=== PATIENT | male | born 1995 | race Two or more races ===

== ENCOUNTER 2022-01-14 03:01 | Emergency (ER) | payer SELFPAY ==
[~2022-01-14] VITALS: Ht 182.9 cm; Wt 113.6 kg
[2022-01-14] MEDS ORDERED: KETOROLAC 30 MG/ML VIAL. IVP ONE (03:45)
[2022-01-14] MEDS ORDERED: KETOROLAC 15 MG/ML VIAL. ONE (04:01)
--- NOTE | 2022-01-14 04:06 | RAD ---
XR KNEE 3 VIEWS_RT 01/14/2022 3:40 AM INDICATION: Pain, injury COMPARISON: None available. TECHNIQUE: 3 views of the right knee are provided. FINDINGS/ IMPRESSION: No significant knee joint effusion. There is no acute fracture or dislocation. Joint spaces are maint ained. Bone mineralization is within normal limits. Regional soft tissues are within normal limits. T here is no soft tissue gas or osseous erosion. No radiopaque foreign body. Electronically signed by: Hannah Castañeda MD (01/14/2022 4:04 AM) JUAN MIGUEL
--- NOTE | 2022-01-14 04:36 | PHYS DOC ---
Adult General Chief Complaint Chief Complaint: KNEE INJURY HPI HPI The patient is a 26-year-old male who is otherwise healthy. He presents for evaluation of lateral right knee discomfort with onset last evening when he stepped wrong off a curb and hurt his knee somehow (he is not quite sure how; he did not fall but landed on his foot awkwardly). No other injury during the episode. Took some Tylenol without complete relief of symptoms. Called the ambulance to bring him to the hospital for evaluation because his knee was bothering him this morning. Review of Systems Review of Systems A 12 point review of systems was completed and was negative except where noted in HPI above. Current Medications Current Medications Current Medications Medications (Trade) Dose Ordered Sig/Rolly Start Time Stop Time Status Last Admin Dose Admin Ketorolac Tromethamine (Toradol 15mg Vial) 15 mg STK-MED ONCE 01/14/22 04:01 01/14/22 04:01 DC Ketorolac Tromethamine (Toradol 30mg Vial) 30 mg 1X ONCE 01/14/22 03:45 01/14/22 03:46 UNV 01/14/22 04:05 30 MG Physical Exam Physical Exam 26-year-old male appearing nontoxic and in no acute distress. Head is normocephalic and atraumatic. Neck is supple and nontender. Oropharynx is moist. Lungs are clear to auscultation at all stations. There is a normal S1 and S2 without rubs or gallops and capillary refill is appropriate, less than 2 seconds globally. Abdomen is soft, nontender and nondistended. Skin is warm and dry without cyanosis, clubbing or edema. Psychiatrically, the patient demonstrates appropriate mood and affect and is alert. Evaluation of the right lower extremity is remarkable for mild tenderness to palpation over the anterior lateral right knee without erythema, warmth or swelling to the right knee. Mild discomfort with ranging and mild limitation of ranging of the right knee with flexion and extension but no joint irritability seen. No discomfort with ranging of any other joint of the right lower extremity. Right lower extremity is neurovascular intact distally with strength out of 5, sensation intact light touch in all nerve distributions, DP and PT pulses 2+, capillary refill less than 2 seconds, foot warm and well-perfused. EKG EKG [] Radiology/Procedures Radiology/Procedures XR KNEE 3 VIEWS_RT 01/14/2022 3:40 AM INDICATION: Pain, injury COMPARISON: None available. TECHNIQUE: 3 views of the right knee are provided. FINDINGS/ IMPRESSION: No significant knee joint effusion. There is no acute fracture or dislocation. Joint spaces are maintained. Bone mineralization is within normal limits. Regional soft tissues are within normal limits. There is no soft tissue gas or osseous erosion. No radiopaque foreign body. Electronically signed by: Kee Gill MD (01/14/2022 4:04 AM) [facility] DICTATED and SIGNED BY: KEE GILL MD DATE: 01/14/22 [id number] 0 Course & Med Decision Making Course & Med Decision Making Plain films without evidence of acute process. Given degree of discomfort, will place knee immobilizer and provide a set of crutches and will place the patient on a course of anti-inflammatories. Will refer to orthopedics for close follow-up in the office. Patient understands that if he feels worse instead of better or develops other new symptoms of concern that he should return to the emergency department immediately for reevaluation. All questions are answered. Dragon Disclaimer Dragon Disclaimer This electronic medical record was generated, in whole or in part, using a voice recognition dictation system. Departure Departure Impression: Primary Impression: Acute internal derangement of right knee Disposition: HOME / SELF CARE / HOMELESS Condition: IMPROVED Referrals: IRENE HALL MD Patient Instructions: Knee Pain Additional Instructions: Follow-up very closely with the orthopedic doctor in the office (Dr. Irene Hall) for a reevaluation of your symptoms and to discussion of next best steps in care. Take a 600 mg ibuprofen pill every 6 hours as needed for discomfort, with food to prevent stomach upset. Rest, ice and elevate. You may wear the knee immobilizer for comfort and use the crutches to stay off your injured knee. As your knee begins to feel better you may bear weight as tolerated on the affected leg. Return to the emergency department right away for worsening symptoms of any kind or with any other new symptoms of concern. CHERRIE ROSAS MD Jan 14, 2022 04:36
[2022-01-14] MEDS ORDERED: IBUP-1007 PO (04:37)
[2022-01-14 05:30] VITALS: BP 147/73
== END 2022-01-14 05:58 | disposition home or self-care (01) ==
LOC: ER 03:01
DX: S89.91XA Unspecified injury of right lower leg, initial encounter (principal); M23.91 Unspecified internal derangement of right knee; W10.1XXA Fall (on)(from) sidewalk curb, initial encounter; Y93.89 Activity, other specified; Y92.89 Other specified places as the place of occurrence of the external cause; Y99.8 Other external cause status
CPT/HCPCS: 29505; 73562; 96374; 99283; J1885